=== PATIENT | female | born 1980 | race Two or more races ===

== ENCOUNTER 2016-09-06 21:36 | Emergency (ER) | payer SELFPAY ==
[~2016-09-06] VITALS: Ht 160 cm; Wt 57.2 kg
[2016-09-06] MEDS ORDERED: IV SET PRIMARY 1 EA INFUS.SET MC ONE (22:18)
[2016-09-06] MEDS ORDERED: IV NS 0.9% 1,000 ML ONE (22:18)
[2016-09-06] MEDS ORDERED: methylPREDNISolone SOD SUCC 125 MG/2ML VIAL ONE (22:18)
[2016-09-06] MEDS ORDERED: FAMOTIDINE/PF INJ 20 MG/2 ML VIAL IV ONE ×2 (22:19→22:30)
[2016-09-06] MEDS ORDERED: methylPREDNISolone SOD SUCC 125 MG/2ML VIAL IV ONE (22:30)
[2016-09-06] MEDS ORDERED: IV NS 0.9% 1,000 ML BAG IV ONE (22:30)
[2016-09-06 23:23] VITALS: BP 150/116
== END 2016-09-06 23:26 | disposition home or self-care (01) ==
LOC: ER 21:39
DX: T78.40XA Allergy, unspecified, initial encounter (principal); Z88.2 Allergy status to sulfonamides; Z91.02 Food additives allergy status
CPT/HCPCS: A4606; J2930; J3490; J7030; Z7610

== ENCOUNTER 2019-05-17 04:52 | Emergency (ER) | payer SELFPAY ==
[~2019-05-17] VITALS: Ht 160 cm; Wt 58.1 kg
--- NOTE | 2019-05-17 05:01 | NUR ---
CALLED FOR TRIAGE, NO ANSWER.
[2019-05-17 05:53] LABS: APPEARANCE,URINE Cloudy (CLEAR); BILIRUBIN,URINE SMALL (NEGATIVE); BLOOD, URINE Large Ery/uL (NEGATIVE); COLOR,URINE Amber (YELLOW); KETONES,URINE Negative (NEGATIVE); LEUKOCYTE ESTERASE ,URINE Large (NEGATIVE); NITRITE, URINE Positive (NEGATIVE); PROTEIN,URINE >=300 mg/dl (NEGATIVE); UGLUCOSE 100 MG/DL mg/dL (NEGATIVE)
[2019-05-17 06:16] LABS: BACTERIA,URINE Many /HPF (None Seen); RBC,URINE TOO NUMEROUS TO COUN /HPF (0-2); WBC,URINE TOO NUMEROUS TO COUN /HPF (0-3)
--- NOTE | 2019-05-17 06:16 | NUR ---
PT BIBSELF C/O DYSURIA. PT STATES SHE HAS A UTI DUE TO FREQUENT URINATION +BURNING SENSATION, +VB. PT AAOX4, RR EVEN AND UNLABORED, SKIN INTACT, ABLE TO AMBULATE WITH STEADY GAIT, NO ACUTE DISTRESS NOTED AT THIS TIME, WILL CONTINUE TO MONITOR.
[2019-05-17 06:17] LABS: SQUAMOUS EPITHELIAL CELL,UR Few /HPF (None Seen)
[2019-05-17] MEDS ORDERED: CEPHALEXIN MONOHYDRATE 500 MG CAPSULE PO ONE ×2 (06:30→06:36)
[2019-05-17] MEDS ORDERED: IBUPROFEN 600 MG TABLET PO ONE ×2 (06:30→06:36)
--- NOTE | 2019-05-17 06:53 | NUR ---
PT ambulatory with a steady gait. Patient discharged to home in stable condition. Written and verbal after care instructions given. Patient verbalizes understanding of instruction.
[2019-05-17 06:54] VITALS: BP 124/86
== END 2019-05-17 06:56 | disposition home or self-care (01) ==
LOC: ER 04:53
DX: N39.0 Urinary tract infection, site not specified (principal); Z88.2 Allergy status to sulfonamides; Z88.1 Allergy status to other antibiotic agents; Z91.018 Allergy to other foods
CPT/HCPCS: 81000-TC; 84703-TC; 87086-TC; 87186-TC